=== PATIENT | female | born 1940 | race Two or more races ===

== ENCOUNTER → 2017-11-17 | Outpatient (CLI) | payer BC | END | disposition home or self-care (01) | LOC: KCIC 09:20 | DX: M11.262 Other chondrocalcinosis, left knee (principal); M76.892 Other specified enthesopathies of left lower limb, excluding foot; Z91.81 History of falling | CPT/HCPCS: 73562 ==

== ENCOUNTER → 2017-12-05 | Outpatient (CLI) | payer BC | END | disposition home or self-care (01) | LOC: KCIC MRI 07:38 | DX: S83.8X2A Sprain of other specified parts of left knee, initial encounter (principal); M17.12 Unilateral primary osteoarthritis, left knee; M71.22 Synovial cyst of popliteal space [Baker], left knee; M22.42 Chondromalacia patellae, left knee; M25.462 Effusion, left knee; Z91.81 History of falling; X58.XXXA Exposure to other specified factors, initial encounter; Y93.89 Activity, other specified; Y92.89 Other specified places as the place of occurrence of the external cause; Y99.8 Other external cause status | CPT/HCPCS: 73721 ==

== ENCOUNTER → 2018-03-03 | Outpatient (CLI) | payer BC | END | disposition home or self-care (01) | LOC: KCIC US 11:56 | DX: I70.292 Other atherosclerosis of native arteries of extremities, left leg (principal) | CPT/HCPCS: 93926 ==

== ENCOUNTER → 2018-06-21 | Outpatient (CLI) | payer BC ==
[2016-02-04 11:00] VITALS: BP 138/59
[~2018-06-21] MED LIST: ACET325T21 PO; AMLO10TA6 PO; CHLO1CAP50 PO; CHOL378P PO; CRESTOR20 MG PO; DICL1TAB5 PO; HYDR28GE TP; HYOS0.3715 PO; METH-37 PO; METO-269 PO; OXYB5TAB PO; PANT40TA5 PO; REGADENOSON 0.4 MG/5 ML DISP.SYRIN. IV ONE; VALS1TAB14 PO
--- NOTE | 2018-06-21 09:04 | CARD ---
MR#: [id number] Date of Study: 06/21/2018 Ordering Physician: CHIKIS DEAL, Referring Physician: CHIKIS DEAL, Tech: Melania Buckley APPROVED REPORT EXAM: Two-dimensional and M-mode echocardiogram with Doppler and color Doppler. Other Information Quality : GoodHR: 71bpm Rhythm : NSR INDICATION Dyspnea RISK FACTORS Hypertension Hyperlipidemia 2D DIMENSIONS RVDd1.6 (2.9-3.5cm)Left Atrium(2D)3.9 (1.6-4.0cm) IVSd1.1 (0.7-1.1cm)Aortic Root(2D)3.3 (2.0-3.7cm) LVDd4.0 (3.9-5.9cm)LVOT Diameter2.1 (1.8-2.4cm) PWd1.1 (0.7-1.1cm)LVDs2.8 (2.5-4.0cm) FS (%) 30.9 %SV42.3 ml LVEF(%)59.1 (>50%) Aortic Valve AoV Peak Jose Martin.138.9cm/sAoV VTI30.8cm AO Peak GR.7.7mmHgLVOT Peak Jose Martin.109.8cm/s AO Mean GR.4mmHgAVA (VMAX)2.67cm2 Mitral Valve MV E Vbzdvlke69.7cm/sMV DECEL OSLZ815si MV A Obuaotgl746.9cm/sE/A Ratio0.7 Pulmonary Valve PV Peak Kjckstcz830.4cm/s Tricuspid Valve TR P. Bacbkbhu614bl/sRAP ZAIFLZUI0unTz TR Peak Gr.38riExWCEA92lcNo Pulmonary Vein S1 Pyolmyah87.2cm/sPVa ilosqnpa483eubh LEFT VENTRICLE The left ventricle is normal size. There is borderline concentric left ventricular hypertrophy. The l eft ventricular systolic function is normal. The ejection fraction is estimated at 55-60%. There is n ormal LV segmental wall motion. Transmitral Doppler flow pattern is Grade I-abnormal relaxation patte rn. RIGHT VENTRICLE The right ventricle is normal size. There is normal right ventricular wall thickness. The right ventr icular systolic function is normal. ATRIA The left atrium size is normal. The right atrium size is normal. The interatrial septum is intact wit h no evidence for an atrial septal defect or patent foramen ovale as noted on 2-D or Doppler imaging. AORTIC VALVE The aortic valve is normal in structure and function. Doppler and Color Flow revealed trace aortic re gurgitation. There is no significant aortic valvular stenosis. MITRAL VALVE The mitral valve is calcified but opens well. There is no mitral valve stenosis. Doppler and Color-fl ow revealed trace mitral regurgitation. TRICUSPID VALVE The tricuspid valve is normal in structure and function. Doppler and Color Flow revealed no tricuspid valve regurgitation noted. There is no tricuspid valve stenosis. PULMONIC VALVE The pulmonic valve is not well visualized. Doppler and Color Flow revealed no pulmonic valvular regur gitation. GREAT VESSELS The aortic root is normal in size. Normal pulmonary venous flow (Doppler). The IVC is normal in size and collapses >50% with inspiration. PERICARDIAL EFFUSION There is no evidence of significant pericardial effusion. Critical Notification Critical Value: No <Conclusion> The left ventricular systolic function is normal. The ejection fraction is estimated at 55-60%. There is normal LV segmental wall motion. Transmitral Doppler flow pattern is Grade I-abnormal relaxation pattern. Trace mitral regurgitation. There is no evidence of significant pericardial effusion. Signed by : Vicente Melo, Electronically Approved : 06/21/2018 09:03:05
--- NOTE | 2018-06-21 13:16 | RAD ---
MR#: [id number] Date of Study: 06/21/2018 Ordering Physician: CHIKIS DEAL, Referring Physician: SARITA POE Tech: SAMIA Fraser APPROVED REPORT Test Type: Pharmacological Stress Nurse/Tech: Sandra Quach RN Test Indications: Dyspnea Cardiac History: Hypertension, Family history Medications: See Electronic Medical Record Medical History: See Electronic Medical Record Resting ECG: SR with PVC's Resting Heart Rate: 70 bpm Resting Blood Pressure: 199/76mmHg Pretest Chest Pain: No chest pain Nurse/Tech Notes S1,S2 and lungs are clear to auscultation. Consent: The procedure was explained to the patient in lay terms. Informed consent was witnessed. [place] eout was entered into [employer]. History and Stress Test performed by SAMIA Fraser Pharm. Details Pharmacologic stress testing was performed using 0.4mg per 5ml of regadenoson given intravenously ove r 7-10 seconds. Stress Symptoms No chest pain or symptoms. POST EXERCISE Reason for Termination: Infusion complete Target HR: No Max HR: 105 bpm Max Blood Pressure: 175/72mmHg Blood Pressure response to exercise: Normal blood pressure response during stress. Heart Rate response to exercise: WNL Chest Pain: No. Arrhythmia: Yes. PVC's ST Change: No. INTERPRETATION Stress EKG Conclusion: The resting EKG shows a sinus rhythm, a septal Q wave and nonspecific ST segme nt changes. Stress EKG shows no significant changes from baseline. No EKG evidence of stressed induced ischemia. Imaging Protocol IMAGE PROTOCOL: Rest Tc-99m/stress Tc-99m 1 day Rest: Stress: Viability: Radiopharm.Tc99m OuzxpcwzaDt52s Sestamibi Dose11.8mCi 33.2mCi Duration 17min. 13min. Img Date 06/21/2018 06/21/2018 Inj-Img Zbaj13tja. 75min. Rest Admin Site:IV - Right AntecubitalAdministrator:SAMIA Fraser Stress Admin Site: IV - Right AntecubitalAdministrator: TATE Bledsoe, ARRT (R)(N) STRESS DATA End Diast. Vol.54.0mlLVEDV index BSA34.0ml End Syst. Vol.17.0mlLVESV index BSA10.0ml Myocardial Vfhh496.0gEject. Kynsaogq58.0% Stress Scores Regional WT1.00Summed WT12.00 Regional WM0.00Summed WM6.00 LV Perfusion The stress scans show a mild apical lateral defect. The rest scans show a slight apical defect. Nuclear imaging shows an area of reversible ischemia in the apical lateral wall. Wall Motion Left ventricular systolic function is normal with an ejection fraction of 69%. LV Perf. Quant 17 Seg. SSS4.00 17 Seg. SRS4.00 17 Seg. SDS1.00 Stress Defect Extent (% LAD)7.50Rest Defect Extent (% LAD)3.10Rev. Defect Extent (% LAD)0.00 Stress Defect Extent (% LCX) 11.30Rest Defect Extent (% LCX)12.50Rev. Defect Extent (% LCX)0.00 Stress Defect Extent (% RCA)0.00Rest Defect Extent (% RCA)0.00Rev. Defect Extent (% RCA)0.00 Stress Defect Extent (% JUAN ALBERTO)8.90Rest Defect Extent (% JUAN ALBERTO)7.80Rev. Defect Extent (% JUAN ALBERTO)0.00 Conclusion 1. Baseline abnormal EKG but no EKG evidence of stressed induced ischemia. 2. Nuclear imaging shows a small area of reversible ischemia in the apical lateral wall. 3. Left ventricular systolic function is normal with an ejection fraction of 69%. 4. Moderate risk Lexiscan nuclear stress test. Signed by : Chilo Liang MD Electronically Approved : 06/21/2018 13:15:00
== END | disposition home or self-care (01) ==
LOC: ECHO 07:37
PROVIDERS: ATTEND Internal Medicine Cardiovascular Disease
DX: R06.00 Dyspnea, unspecified (principal); R94.31 Abnormal electrocardiogram [ECG] [EKG]; E78.5 Hyperlipidemia, unspecified; I10 Essential (primary) hypertension; Z82.49 Family history of ischemic heart disease and other diseases of the circulatory system
CPT/HCPCS: 78452; 93017; 93306; 96374; 96375; 96376; A9500; J2785

== ENCOUNTER → 2018-08-08 | Outpatient (CLI) | payer BC ==
[2016-02-04 11:00] VITALS: BP 138/59
[~2018-08-08] MED LIST changes: +IOHEXOL 240 MG/ML 50ML VIAL. PO ONE; +IOHEXOL 300 MG/ML 100ML VIAL. IV ONE; -REGADENOSON 0.4 MG/5 ML DISP.SYRIN. IV ONE
--- NOTE | 2018-08-08 13:25 | KCIC ---
CT abdomen and pelvis with contrast History: Left lower quadrant abdominal pain, diarrhea for 2 weeks Technique: After the administration of oral and intravenous contrast, CT imaging was performed of the abdomen and pelvis. Multiplanar images are reviewed. Exposure: One or more of the following individualized dose reduction techniques were utilized for this examination: 1. Automated exposure control 2. Adjustment of the mA and/or kV according to patient size 3. Use of iterative reconstruction technique. Comparison: May 30, 2014 CT pelvis exam, no previous abdomen exam available Findings: There is mild hyperdensity of the right lung base which could be due to to sequela of aspirated contrast or calcifications. There is no pleural fluid. There is coronary calcification. Visualized ascending thoracic aorta is slightly ectatic about 3.7 cm. There has been cholecystectomy. Extra hepatic common bile duct is dilated about 1 cm, also mild intrahepatic biliary ductal dilatation. Both kidneys enhance, left kidney is small in size. 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 There is a 3.3 cm inferior right renal cyst, also slightly exophytic hypodense lesion of the mid right kidney about 1.1 cm with density measurements 22 Hounsfield units. There is another hypodense lesion of the mid to superior right kidney about 1.5 cm density measurements of 22 Hounsfield units. There is atherosclerotic calcification of the normal caliber abdominal aorta. There is no significant adrenal nodularity. There are splenic granulomas. There is relative atrophy of the pancreas, visualization of the pancreatic duct. Bowel is not significantly dilated. There is no localized extraluminal fluid collection or free air. There is retained stool in segments of colon. There is diverticulosis greatest of the proximal to mid sigmoid colon not associated with significant adjacent inflammatory-type change. Appendix is not confidently identified if still present. There is multilevel lumbar degenerative disc disease and facet degenerative change. There is likely vyye-um-vwrbggtl spinal stenosis L4-5, some other variable lateral recess stenosis. There is multilevel lumbar neural foramina compromise, more significant narrowing on the left at L3-4 and L2-3. There is levoscoliosis centered near the thoracolumbar junction. Impression: 1. There is colonic diverticulosis without convincing evidence of diverticulitis, no significant inflammatory change about the bowel. 2. There are hypodense foci of the right kidney, largest compatible with a cyst, other smaller foci probable slightly complex cysts. 3. There has been cholecystectomy, intrahepatic and extra hepatic biliary ductal dilatation although sometimes can be normally seen after cholecystectomy. 4. There is coronary calcification. There is slightly ectatic visualized ascending thoracic aorta. Electronically signed by: Jay Barton MD (08/08/2018 1:21 PM) [facility]
== END | disposition home or self-care (01) ==
LOC: KCIC CT 07:31
PROVIDERS: ATTEND Family Medicine
DX: K57.30 Diverticulosis of large intestine without perforation or abscess without bleeding (principal); I25.10 Atherosclerotic heart disease of native coronary artery without angina pectoris; I77.810 Thoracic aortic ectasia; M51.36 Other intervertebral disc degeneration, lumbar region; M48.061 Spinal stenosis, lumbar region without neurogenic claudication; I70.0 Atherosclerosis of aorta; K86.89 Other specified diseases of pancreas; D73.89 Other diseases of spleen; N28.1 Cyst of kidney, acquired; I10 Essential (primary) hypertension; Z79.01 Long term (current) use of anticoagulants
CPT/HCPCS: 74177; Q9966; Q9967

== ENCOUNTER → 2018-09-18 | Outpatient (CLI) | payer BC, MEDICARE ==
[2016-02-04 11:00] VITALS: BP 138/59
[~2018-09-18] MED LIST changes: +ASPI81TA50 PO; +BUPIVACAINE MPF 0.25% 10 ML VIAL. ONE; -IOHEXOL 240 MG/ML 50ML VIAL. PO ONE; -IOHEXOL 300 MG/ML 100ML VIAL. IV ONE; +LIPA1CAP14 PO; +METH500T5 PO; +OLME1TAB21 PO; +RANI150T2 PO; +methylPREDNISolone ACETATE 40 MG/ML VIAL. ONE
--- NOTE | 2018-09-18 19:56 | PAIN ---
DATE OF SERVICE: 09/18/2018 INITIAL CONSULTATION FOR PAIN CLINIC CHIEF COMPLAINT: Mid upper back pain. HISTORY OF PRESENT ILLNESS: This is a 77-year-old female who presents with history of pain in the mid upper back for about 6 months or so. The patient reports no specific injury or action that she is aware of, but when she is working on her computer reading, slumping forward, she has much more pain in the mid back between the shoulder blades. The patient reports it is not radiating right or left, upper or lower. The patient reports that she is doing some exercises. She is lying on the floor, doing some stretching, putting heat applications all of which help decrease the pain to a moderate extent, but only temporarily. The patient has had no formal physical therapy treatments or other treatments at this time or chiropractic manipulations. The patient did have a CT of the abdomen and pelvis, which showed some reading on the lumbar spine with mild to moderate spinal stenosis at L4-L5 and some lumbar neural foraminal compromise, more significant narrowing on the left at L3-L4 and L2-L3, but the thoracic spine was not examined. The patient reports it is worse with standing, walking, changing positions, getting in and out of the car, but better with lying down or resting. Does not awaken her from sleep at night. The patient reports it is a pressure sensation that is dull, aching, sometimes burning hot and fatiguing and stabbing. The patient reports a disability rating from 0-10, 10 being the worst, is a 7 with family and home responsibilities and self-care, 8 with recreational activities, social activity and life support activities, 9 with occupation, 6 with sexual behavior. The patient has tried Arthrotec xbes-tdk-mgnluhz, which does help by about 50%. PAST MEDICAL HISTORY: Significant for hypertension, arthritis, weight loss. PREVIOUS SURGERIES: Include cholecystectomy and hysterectomy. CURRENT MEDICATIONS: Include Crestor, pantoprazole, cholestyramine, acetaminophen, Robaxin, Toprol, Arthrotec, Levbid, Citrucel, lipase, daily baby aspirin, Zantac and Benicar. ALLERGIES: ALLERGIC TO CODEINE AND SUDAFED. FAMILY HISTORY: Significant for heart disease, hypertension, arthritis and stress. SOCIAL HISTORY: The patient does not drink alcohol, does not smoke, does not use any illegal, illicit or recreational drugs or other substances. 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 REVIEW OF SYSTEMS: The patient's review of systems is positive for those items mentioned in history of present illness. All systems reviewed and otherwise negative. It is complete, full and well documented on the patient's chart. PHYSICAL EXAMINATION: VITAL SIGNS: The patient's blood pressure is 120/66, pulse 64, respirations 19, temperature 98.1 degrees Fahrenheit, height is 5 feet 3 inches, weighs 124 pounds. GENERAL: The patient is awake, alert, oriented, appropriate, very pleasant demeanor. The patient is accompanied by her . HEENT: Head shows normocephalic, atraumatic. Extraocular movements are intact and symmetrical. Oral cavity: Mucous membranes are moist and pink. Dentition is intact. NECK: Shows anterior throat supple without palpable lymphadenopathy noted. Swallow reflex is symmetrical. CHEST: Shows normal on inspection. Breath sounds are clear to auscultation bilaterally. HEART: Shows S1, S2 clear. No murmurs auscultated. ABDOMEN: Soft, nontender, nondistended. No palpable organomegaly is noted. No rebound or guarding demonstrated. BACK: Shows spine grossly in the midline. Normal appearing thoracic kyphosis and lumbar lordotic curvature. Lumbar paraspinous muscle shows symmetrical on inspection, on palpation shows some moderate tenderness but only diffusely without radiation. The patient's thoracic paraspinous muscle shows symmetrical, but with palpation shows some very significant firm rope-like musculature at approximately the T6 region paraspinous bilaterally, worse slightly, more tender on the right than the left, but present bilaterally with very firm rope-like musculature, very tender to palpation, but without significant radiation. The patient has no specific tenderness over the spinous processes, but the areas of musculature just next to these is very, very tender, again right slightly worse than the left, but present bilaterally. EXTREMITIES: The patient's upper extremities show deep tendon reflexes 2+ in the biceps and triceps tendons. 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 Peripheral pulses are 2+ radial distribution. No peripheral edema is noted. Lower extremities show deep tendon reflexes 1+ in the patellar and tendo calcaneus tendons, are equal. Motor exam is 5/5 with dorsiflexion and extension and symmetrical. Peripheral pulses are 1+ posterior tibial and dorsalis pedis pulses without edema bilaterally as well. IMPRESSION: 1. This is a 77-year-old female with about 6-month history of increasing pain in mid upper back with myofascial syndrome and trigger points as identified. 2. Arthritis. 3. Hypertension. PLAN: Options were discussed with the patient including conservative medical management, physical therapies, interventional techniques. She would like to pursue interventional techniques. We discussed trigger point injections of the thoracic paraspinous musculature, both right and left using description as well as anatomical models to describe the procedure. Risks were then discussed including, but not limited to bleeding, infection, possibility of intravascular injection sequelae, spread of local anesthetic and numbness, pneumothorax, side effects of steroid medication and poor results regarding pain control. The patient understands and wished to proceed. The patient will return to the clinic in approximately 2 weeks for followup, was counseled on return appointment, activity level and side effects to be aware of. DIAGNOSIS: Myofascial pain. PROCEDURE: Trigger point injections of bilateral mid thoracic paraspinous musculature under sterile prep and drape using local anesthetic. MEDICATION INJECTED: A total of 40 mg Depo-Medrol plus total of 6 mL of 0.25% bupivacaine after negative aspiration at each injection site. CONDITION AT DISCHARGE: Stable. The patient tolerated the procedure well, had no complications. SANDEE LO MD DR: CHAUNCEY/deb JOB#: [id number] / [id number]
== END | disposition home or self-care (01) ==
LOC: PNCL 08:04
PROVIDERS: ATTEND Anesthesiology
DX: M79.18 Myalgia, other site (principal); I10 Essential (primary) hypertension; M19.90 Unspecified osteoarthritis, unspecified site; Z90.49 Acquired absence of other specified parts of digestive tract; Z90.710 Acquired absence of both cervix and uterus; Z79.899 Other long term (current) drug therapy; Z79.82 Long term (current) use of aspirin; Z88.5 Allergy status to narcotic agent; Z88.8 Allergy status to other drugs, medicaments and biological substances; Z82.49 Family history of ischemic heart disease and other diseases of the circulatory system; Z82.61 Family history of arthritis
CPT/HCPCS: 20552; J1030; J3490

== ENCOUNTER → 2018-10-10 | Outpatient (CLI) | payer BC ==
[2016-02-04 11:00] VITALS: BP 138/59
[~2018-10-10] MED LIST changes: -BUPIVACAINE MPF 0.25% 10 ML VIAL. ONE; -methylPREDNISolone ACETATE 40 MG/ML VIAL. ONE
--- NOTE | 2018-10-10 12:29 | PAIN ---
DATE OF SERVICE: 10/10/2018 DIAGNOSES: Thoracic degenerative disk disease with myofascial pain. HISTORY OF PRESENT ILLNESS: The patient is a 77-year-old female who returns for followup status post bilateral thoracic paraspinous musculature trigger point injections on 09/18/2018. The patient reports she did well for about 3-4 days and the pain returned. There is still significant pain in the mid upper back tightness bilaterally in the mid to lower thoracic distribution. The patient reports it is a 9 on a scale of 10 at its worst, 7-8 on average, 7 at its least and is a 7 today. The patient reports that heat does decrease the pain significantly. She is having hard time keeping it stretched in this area and again with it shots helped, they were temporary. The patient reports it is aching and tight, becoming more severe, worse with walking, standing, activity and change in positions. The patient reports it is worse at the end of the day when she has been on her feet longer, but generally has not awaken her from sleep at night, better with lying down or resting, again heat significantly decreased the pain. The patient reports it is described as tight and aching most times. No radiation into the upper extremities. She does have some radiation around the ribs and into the anterior chest, occasionally more on the right than the left. The patient reports no new motor or sensory deficits, no new changes. PHYSICAL EXAMINATION: VITAL SIGNS: The patient's blood pressure 142/72, pulse is 63, respirations 18, temperature is 97.8 degrees Fahrenheit, height is 5 feet 3 inches, weighs 123 pounds. GENERAL: The patient is awake, alert, oriented, appropriate, very pleasant demeanor. HEENT: Head shows normocephalic, atraumatic. The patient wears eye glasses. Extraocular movements intact and symmetrical. Oral cavity: Mucous membranes moist and pink. Dentition is intact. NECK: Shows anterior throat supple without palpable lymphadenopathy noted. Swallow reflex is symmetrical. CHEST: Shows normal on inspection. Breath sounds clear to auscultation bilaterally. HEART: Shows S1, S2 clear. No murmurs auscultated. ABDOMEN: Soft, nontender, nondistended. No palpable organomegaly is noted. BACK: Shows spine grossly in the midline. Slight exaggeration of thoracic kyphosis, normal appearing cervical lordotic curvature and some slight flattening of lumbar lordotic curvature. Thoracic paraspinous musculature shows symmetrical on inspection. Palpation shows some significant tenderness, very firm rope-like musculature in the mid to lower distribution, thoracic distribution with palpation very tender as well but without specific radiation. The patient does show good rotational motion of the thoracic spine; however, extension and flexion as well as right and left lateral rotation without significant increase in pain. The patient shows again hypertrophied but symmetrical, very firm rope-like musculature bilaterally in the mid thoracic, still lower thoracic distribution. EXTREMITIES: Upper extremities show deep tendon reflexes 2+ in the biceps and triceps tendons. 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 No peripheral edema is noted. Peripheral pulses are 2+ radial. PLAN: 1. Options were discussed with the patient. The patient's old chart was reviewed as her current medication regimen and updated. Current review of systems is updated today as well. We will order a thoracic MRI scan to evaluate the radicular qualities of her thoracic pain. 2. We will order physical therapy with myofascial release, heat and massage and ultrasound therapies for the mid to lower thoracic distribution, also start the patient on stretching and strengthening exercises to maintain and maintain heat treatment as she is doing currently and this is helpful as well. The patient wishes to forego any further injections at this time. We will await for the results of the MRI scan as well as physical therapy and see if this may help significantly and the patient will follow up once physical therapy has initiated and MRI scan results are obtained. SANDEE LO MD DR: CHAUNCEY/deb JOB#: [id number] / [id number]
== END | disposition home or self-care (01) ==
LOC: PNCL 09:57
PROVIDERS: ATTEND Anesthesiology
DX: M51.34 Other intervertebral disc degeneration, thoracic region (principal); M79.18 Myalgia, other site
CPT/HCPCS: G0463

== ENCOUNTER → 2018-10-17 | Outpatient (CLI) | payer BC, MEDICARE ==
[2016-02-04 11:00] VITALS: BP 138/59
--- NOTE | 2018-10-17 12:02 | KCIC ---
RENAL COMPLETE BILATERAL: 10/17/2018 8:00 AM Indication: 77 years old Female. Renal mass on CT. Comparison: None. FINDINGS: Sonographic evaluation of kidneys is performed utilizing grayscale and color Doppler. Right kidney: Size: 11.3 x 4.8 x 5.0cm. Collecting System: No hydronephrosis. No renal calculi detected. Parenchyma: Echogenic and atrophic. Superior pole right renal complex cyst measures 1.7 x 1.1 x 1.4 cm with thin septations. No definite mural nodularity. Midpole hypoechoic right renal cyst measures 1.5 x 1.6 x 1.3 cm. This cyst may have been septations. There is a lower pole right renal cyst measuring 3.3 x 3.2 x 2.9 cm which appears more simple, however has echogenic debris. Left kidney: Size: 8.1 x 3.8 x 4.7cm. Collecting System: No hydronephrosis. No renal calculi detected. Parenchyma: Echogenic and atrophic. No focal contour deforming renal mass. Urinary bladder: Decompressed. Proximal aorta measures 1.6 cm. Mid aorta measures 1.2 cm. Distal aorta is normal in caliber. IVC is normal. IMPRESSION: 1. Increased echogenicity of the renal parenchyma with bilateral atrophy suggestive of medical renal disease. 2. No obstructive uropathy. 3. Right renal cysts, some of which are complicated by internal debris and thin septations. Findings may represent a Bosniak 2 cysts. The smaller cyst in the midpole right kidney may represent a cyst complicated by hemorrhage or protein. Six-month follow-up renal ultrasound may be of benefit. Electronically signed by: Yamini Dooley MD (10/17/2018 11:58 AM) [facility]
== END | disposition home or self-care (01) ==
LOC: KCIC US 07:56
PROVIDERS: ATTEND Family Medicine
DX: N28.1 Cyst of kidney, acquired (principal); N26.1 Atrophy of kidney (terminal)
CPT/HCPCS: 76770

== ENCOUNTER → 2018-10-17 | Outpatient (CLI) | payer BC, MEDICARE ==
[2016-02-04 11:00] VITALS: BP 138/59
--- NOTE | 2018-10-17 13:11 | KCIC ---
MR thoracic spine without contrast October 17, 2018 INDICATION: Mid to upper thoracic spine pain. COMPARISON: None available. TECHNIQUE: Multiplanar, multisequence MR imaging of the thoracic spine was performed without intravenous contrast. FINDINGS: Alignment of the thoracic spine appears normal. Vertebral body heights are maintained. No acute fracture is identified. There is mild multilevel disc height loss with mild to moderate anterior marginal osteophytosis. Thoracic spinal cord signal intensity is normal in all sequences. Bilateral perineural sheath diverticula are identified at C7-T1. Thyroid gland is normal in appearance. No paraspinal soft tissue abnormality is identified. Visualized portions of the lungs appear clear. Simple renal cortical cysts and mild atrophy of the left kidney. Mild intrahepatic and extra hepatic biliary ductal dilatation may be secondary to post cholecystectomy changes. T1-T2: Disc is normal in configuration. No neuroforaminal or spinal canal stenosis. T2-T3: There is mild disc bulge. No significant facet arthropathy. No neuroforaminal or spinal canal stenosis. T3-T4: Mild disc bulge without significant neuroforaminal or spinal canal stenosis. T4-T5: Disc is normal in configuration. No neuroforaminal or spinal canal stenosis. T5-T6: There is mild disc bulge without significant neuroforaminal or spinal canal stenosis. T6-T7: There is mild disc bulge. There is mild facet arthropathy. No neuroforaminal or spinal canal stenosis. T7-T8: There is mild disc bulge. No significant neuroforaminal or spinal canal stenosis. T8-T9: There is a moderate disc bulge. Mild facet arthropathy. Mild spinal canal stenosis. No significant neuroforaminal stenosis. T9-T10: Mild disc bulge, asymmetric to the right. Mild facet arthropathy. Left-sided perineural sheath diverticula is identified. Mild right neuroforaminal stenosis. T10-T11: There is a moderate disc bulge. There is mild facet arthropathy. There is moderate bilateral neuroforaminal stenosis. Mild spinal canal stenosis. T11-T12: There is a moderate disc bulge asymmetric to the right. There is moderate facet arthropathy. There is moderate bilateral neuroforaminal stenosis. Mild to moderate spinal canal stenosis, exacerbated by ligamentum flavum infolding. T12-L1: There is a moderate disc bulge. There is moderate facet arthropathy. There is mild to moderate right neuroforaminal stenosis. Mild spinal canal stenosis. IMPRESSION: Mild to moderate degenerative changes of the thoracic spine are present, as described in detail above. Electronically signed by: Yamini Dooley MD (10/17/2018 1:06 PM) [id number]
== END | disposition home or self-care (01) ==
LOC: KCIC MRI 07:48
PROVIDERS: ATTEND Anesthesiology
DX: M51.14 Intervertebral disc disorders with radiculopathy, thoracic region (principal); M48.05 Spinal stenosis, thoracolumbar region; Z88.5 Allergy status to narcotic agent; Z88.8 Allergy status to other drugs, medicaments and biological substances; Z98.890 Other specified postprocedural states; Z72.89 Other problems related to lifestyle; Z79.899 Other long term (current) drug therapy
CPT/HCPCS: 72146

== ENCOUNTER → 2019-06-18 | Outpatient (CLI) | payer BC, MEDICARE ==
[2016-02-04 11:00] VITALS: BP 138/59
[~2019-06-18] MED LIST changes: -AMLO10TA6 PO; +AMLO10TA8 PO; -OXYB5TAB PO; +OXYB5TAB2 PO; -PANT40TA5 PO; +PANT40TA77 PO
--- NOTE | 2019-06-18 11:46 | KCIC ---
Bilateral renal ultrasound compared to similar exam dated 10/17/2018 for renal mass, follow-up. Technique an findings: Real-time grayscale and color and spectral Doppler evaluation of the kidneys is performed. The right kidney measures 11.4 x 4.7 x 4.8 cm in the left measures 8.1 x 3.6 x 3.9 cm. The size asymmetry suggests chronic atrophy of the left kidney. There is increased echogenicity of both kidneys. The proximal aorta is obscured, and the mid and distal aorta are not aneurysmal. The IVC is obscured. Urinary bladder is decompressed due to recent voiding. There is normal color flow to both kidneys. In the anterior superior aspect of the right kidney, there is redemonstration of a minimally complex cyst with a couple of thin internal septations. This cyst measures 1.3 x 1.2 x 2.0 cm today, compared to earlier measurements of 1.7 x 1.1 x 1.4 cm. At the medial midpole, there is a simple cyst measuring 2.0 x 1.3 x 1.6 cm, with prior measurements of 1.5 x 1.6 x 1.3 cm. No suspicious features. At the inferior pole of right kidney there is a simple cyst measuring 3.4 x 2.8 x 3.0 cm, with prior measurements of 3.3 x 3.2 x 2.9 cm. Once again no suspicious features. There is no hydronephrosis or perinephric fluid around either kidney. IMPRESSION: 1. Demonstration of bilateral renal atrophy and increased echogenicity suggestive of chronic medical renal disease. Atrophy is worse involving the left kidney. 2. Multiple nonsuspicious right renal cysts as described. Cysts at the mid and lower pole are simple. The cyst at the upper pole is minimally complex, consistent with Bosniak category 2, and no further evaluation is required. Electronically signed by: Cole Walters MD (06/18/2019 11:43 AM) [id number]
== END | disposition home or self-care (01) ==
LOC: KCIC US 07:53
PROVIDERS: ATTEND Family Medicine
DX: N28.89 Other specified disorders of kidney and ureter (principal); N26.1 Atrophy of kidney (terminal); N28.1 Cyst of kidney, acquired
CPT/HCPCS: 76770

== ENCOUNTER → 2020-03-04 | Outpatient (CLI) | payer BC ==
[2016-02-04 11:00] VITALS: BP 138/59
[~2020-03-04] MED LIST changes: +OXYB-36 PO; -OXYB5TAB2 PO
--- NOTE | 2020-03-04 10:58 | KCIC ---
CERVICAL SPINE 5V History: Chronic neck pain worse on the right side Comparison: None. Findings: 6 views of the cervical spine are submitted. There is fairly severe degenerative disc disease C4-5, to lesser degree at C5-6 and C6-7. There is spondylosis greatest C4-5 to C6-7, minimally at C3-4. There is negligible anterior spondylolisthesis C3-4. There is multilevel facet degenerative change. There is uncovertebral degenerative change greatest about mid cervical levels. There is adequate alignment of the lateral masses of C1 relative to C2. There is some atherosclerotic calcification in the region of the carotid arteries in the neck bilaterally. There is degree of neural foramina compromise likely greatest on the right at C4-C5 and C5-6 due to uncovertebral degenerative change. There is atherosclerotic calcification of the visualized aortic arch. Impression: 1. There is multilevel cervical degenerative disc disease and spondylosis greatest at C4-5 and to a lesser degree at C5-6 and C6-7, minimally at C3-4. 2. There is multilevel cervical facet degenerative change. There is negligible anterior spondylolisthesis C3-4. Uncovertebral degenerative change contributes to neural foramina compromise likely greatest on the right at C4-5. Electronically signed by: Jay Barton MD (03/04/2020 10:55 AM) [id number]
== END ==
LOC: KCIC 10:05
PROVIDERS: ATTEND Family Medicine
DX: M50.321 Other cervical disc degeneration at C4-C5 level (principal); M47.812 Spondylosis without myelopathy or radiculopathy, cervical region; M43.12 Spondylolisthesis, cervical region; I65.23 Occlusion and stenosis of bilateral carotid arteries
CPT/HCPCS: 72050

== ENCOUNTER → 2020-03-20 | Outpatient (CLI) | payer BC ==
[2016-02-04 11:00] VITALS: BP 138/59
--- NOTE | 2020-03-20 09:19 | KCIC ---
MRI of the cervical spine without contrast 03/20/2020 CLINICAL HISTORY: Neck and right arm pain. TECHNIQUE: Unenhanced T1-weighted, T2-weighted and inversion recovery sagittal and gradient echo and T2-weighted axial images of the cervical spine were obtained. FINDINGS: Comparison is made to radiographs of the cervical spine dated 03/04/2020. Minimal lateral curvature of the cervical spine is seen convex to the right. There is straightening of the normal cervical lordosis. Degenerative signal changes are seen involving all of the disks of the cervical spine. Loss of height of the C3-4, C4-5, C5-6 and C6-7 discs is seen. Degenerative signal changes are seen within the marrow surrounding all of the disks of the cervical spine. No area of abnormal signal intensity is seen involving the cervical spinal cord. At the C2-3 and C3-4 disc spaces there are minimal to mild generalized disc bulges. Degenerative changes are seen involving the uncovertebral and facet joints bilaterally. These findings when combined do not result in significant central spinal canal or neural foraminal stenosis. At the C4-5 disc space there is a mild to moderate generalized disc bulge. Degenerative changes are seen involving the uncovertebral and facet joints bilaterally. These findings when combined efface the anterior and posterior CSF resulting in mild central spinal canal stenosis with very mild cord impingement. Mild bilateral neural foraminal stenosis is seen. At the C5-6 disc space there is a mild generalized disc bulge. Superimposed on this disc bulge is a focal central disc osteophyte complex. This measures 3 mm in AP diameter. Degenerative changes are seen involving the uncovertebral and facet joints, right greater than left. These findings when combined result in mild central spinal canal stenosis. Mild right greater than left cord impingement is seen. Mild right neural foraminal stenosis is seen. The left neural foramen is patent. At the C6-7 disc space there is a mild generalized disc bulge. Degenerative changes are seen involving the uncovertebral and facet joints bilaterally. These findings when combined result in mild central spinal canal stenosis without evidence of cord impingement. No neural foraminal stenosis is seen. At the C7-T1 disc space there is a minimal generalized disc bulge. Degenerative changes are seen involving the facet joints bilaterally. These findings do not result in significant central spinal canal or neural foraminal stenosis. IMPRESSION: Degenerative changes are seen throughout the cervical spine. These findings result in mild central spinal canal stenosis with very mild cord impingement at C4-5, mild central spinal canal stenosis with mild right greater than left cord impingement at C5-6 and mild central spinal canal stenosis without evidence of cord impingement at C6-7. Mild bilateral neural foraminal stenosis is seen at C4-5. Mild right neural foraminal stenosis is seen at C5-6. Electronically signed by: Amadeo Kurtz MD (03/20/2020 9:17 AM) [id number]
== END ==
LOC: KCIC MRI 07:45
PROVIDERS: ATTEND Family Medicine
DX: M47.812 Spondylosis without myelopathy or radiculopathy, cervical region (principal); M48.02 Spinal stenosis, cervical region; M25.78 Osteophyte, vertebrae
CPT/HCPCS: 72141

== ENCOUNTER 2020-03-21 11:50 | Emergency (ER) | payer BC ==
[~2020-03-21] VITALS: Ht 154.9 cm; Wt 60.0 kg
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
[2020-03-21 13:47] VITALS: BP 187/79
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
== END 2020-03-21 13:53 | disposition home or self-care (01) ==
LOC: ER 11:50
DX: S50.11XA Contusion of right forearm, initial encounter (principal); R07.81 Pleurodynia; I10 Essential (primary) hypertension; K58.9 Irritable bowel syndrome, unspecified; Z87.891 Personal history of nicotine dependence; Z88.5 Allergy status to narcotic agent; Z88.8 Allergy status to other drugs, medicaments and biological substances; W22.01XA Walked into wall, initial encounter; Y93.89 Activity, other specified; Y92.89 Other specified places as the place of occurrence of the external cause; Y99.8 Other external cause status
CPT/HCPCS: 71250; 73090; 99284-25

== ENCOUNTER → 2020-05-14 | Outpatient (CLI) | payer BC ==
--- NOTE | 2020-05-14 12:43 | CARD ---
MR#: [id number] Date of Study: 05/14/2020 Ordering Physician: CHIKIS DEAL, Referring Physician: CHIKIS DEAL, Tech: Melania Buckley APPROVED REPORT EXAM: Two-dimensional and M-mode echocardiogram with Doppler and color Doppler. Other Information Quality : AverageHR: 73bpm INDICATION Cardiac Disease: CAD RISK FACTORS Hypertension Hyperlipidemia 2D DIMENSIONS RVDd2.7 (2.9-3.5cm)Left Atrium(2D)3.0 (1.6-4.0cm) IVSd1.0 (0.7-1.1cm)Aortic Root(2D)2.9 (2.0-3.7cm) LVDd4.6 (3.9-5.9cm)LVOT Diameter1.9 (1.8-2.4cm) PWd0.9 (0.7-1.1cm)LVDs2.5 (2.5-4.0cm) FS (%) 45.0 %SV75.5 ml LVEF(%)76.4 (>50%) Aortic Valve AoV Peak Jose Martin.133.0cm/sAoV VTI28.3cm AO Peak GR.7.1mmHgLVOT Peak Jose Martin.91.4cm/s LVOT VTI 22.38cmAO Mean GR.4mmHg LIBBY (VMAX)1.88ec3XZC (VTI)2.33cm2 Mitral Valve MV E Cumrvtaq70.2cm/sMV DECEL UVUF360em MV A Lizyanpa75.4cm/sMV E Mean Gr.2mmHg MV VCW18fuG/A Ratio0.7 MVA (PHT)3.10cm2 TDI E/Lateral E'6.3E/Medial E'7.7 Pulmonary Valve PV Peak Gwabepfn90.2cm/sPV Peak Grad.3mmHg Tricuspid Valve TR P. Sdburnsh908db/sRAP JGEWXLLC6zcCu TR Peak Gr.27fsCbQVXT85biMc Pulmonary Vein S1 Kilbqncf18.8cm/sD2 Jvulrzlg13.1cm/s PVa [id number] LEFT VENTRICLE The left ventricle is normal size. There is normal left ventricular wall thickness. The left ventricu lar systolic function is normal. The Ejection Fraction is 55-60%. There is normal LV segmental wall m otion. Transmitral Doppler flow pattern is Grade I-abnormal relaxation pattern. RIGHT VENTRICLE The right ventricle is normal size. There is normal right ventricular wall thickness. The right ventr icular systolic function is normal. ATRIA The left atrium size is normal. The right atrium size is normal. The interatrial septum is intact wit h no evidence for an atrial septal defect or patent foramen ovale as noted on 2-D or Doppler imaging. AORTIC VALVE The aortic valve is thickened but opens well. Doppler and Color Flow revealed no significant aortic r egurgitation. There is no significant aortic valvular stenosis. Calculated aortic valve area is 2.84 cm2 with maximum pressure gradient of 7 mmHg and mean pressure gradient of 4 mmHg. MITRAL VALVE The mitral valve is thickened but opens well. There is no evidence of mitral valve prolapse. There is no mitral valve stenosis with a mean gradient of 2.2 mmHg. Doppler and Color-flow revealed mild mitr al regurgitation. TRICUSPID VALVE The tricuspid valve is normal in structure and function. Doppler and Color Flow revealed trace tricus pid regurgitation with an estimated PAP of 38 mmHg. There is no tricuspid valve stenosis. PULMONIC VALVE The pulmonic valve is not well visualized. Doppler and Color Flow revealed no pulmonic valvular regur gitation. GREAT VESSELS The aortic root is normal in size. The IVC is normal in size and collapses >50% with inspiration. PERICARDIAL EFFUSION There is no evidence of significant pericardial effusion. Critical Notification Critical Value: No <Conclusion> The left ventricular systolic function is normal. The Ejection Fraction is 55-60%. There is normal LV segmental wall motion. Transmitral Doppler flow pattern is Grade I-abnormal relaxation pattern. Mild mitral regurgitation. Trace tricuspid regurgitation with an estimated PAP of 38 mmHg. There is no evidence of significant pericardial effusion. Signed by : Vicente Melo, Electronically Approved : 05/14/2020 12:42:39
== END ==
LOC: ECHO 08:49
PROVIDERS: ATTEND Internal Medicine Cardiovascular Disease
DX: I34.0 Nonrheumatic mitral (valve) insufficiency (principal); I25.10 Atherosclerotic heart disease of native coronary artery without angina pectoris
CPT/HCPCS: 93306

== ENCOUNTER → 2021-06-12 | Outpatient (CLI) | payer MEDICARE ==
[~2021-06-12] MED LIST changes: +AMLO-187 PO; -AMLO10TA8 PO; -CHLO1CAP50 PO; +CHLO1CAP56 PO
--- NOTE | 2021-06-12 16:04 | KCIC ---
XR CHEST 2V CLINICAL INDICATIONS: Reason: RECENT WEIGHT LOSS, OCCASSIONAL COUGH, REMOTE USE OF TOBACCO USE / Spl. Instructions: / History: COMPARISON: February 02, 2016. Findings: No acute lung infiltrate or pleural effusion or pulmonary edema or lung mass or pneumothora x is seen. The heart size, pulmonary vasculature, mediastinum and both lux are unremarkable. The os seous structures appear intact. Scoliosis is seen. IMPRESSION: No acute radiographic abnormality is seen. Electronically signed by: Juan Carlos Muhammad MD (06/12/2021 4:02 PM) [id number]
== END ==
LOC: KCIC 09:22
PROVIDERS: ATTEND Family Medicine
DX: R63.4 Abnormal weight loss (principal); M41.84 Other forms of scoliosis, thoracic region
CPT/HCPCS: 71046